=== PATIENT | female | born 1980 | race Caucasian/White ===

== ENCOUNTER 2016-09-05 16:18 | Emergency (ER) | payer SELFPAY ==
[2016-09-05 16:48] VITALS: BP 145/95
[2016-09-05] MEDS ORDERED: methylPREDNISolone Sodium Succinate 40 MG/1 ML SDV IM ONE (17:00)
[2016-09-05] MEDS ORDERED: Albuterol/Ipratropium 3.0-0.5 MG/3 ML Neb Soln NEB ONE (17:00)
[2016-09-05] MEDS ORDERED: Albuterol/Ipratropium 4 GM Inhalation Spray INH PRN (17:02)
--- NOTE | 2016-09-05 17:11 | EDM.PDOC ---
ED HPI GENERAL MEDICAL PROBLEM - General Chief Complaint: Respiratory Problem Stated Complaint: SOB,ASTHMA Time Seen by Provider: 09/05/16 16:56 Source of Information: Reports: Patient, RN Notes Reviewed History Limitations: Reports: No Limitations - History of Present Illness INITIAL COMMENTS - FREE TEXT/NARRATIVE: 35-year-old female presents emergency department day complaint of shortness of breath, she has a known history of asthma however she does not have insurance and has had difficulty following up with a physician cannot afford medications therefore she has not used anything for several months prescribed she ends up borrowing peoples medications particularly inhalers to get by over the last couple days she's been more and more short of breath denies any fevers or chest pain no or GI symptomatologies - Related Data Allergies Allergy/AdvReac Type Severity Reaction Status Date / Time codeine Allergy Vomiting Verified 09/05/16 16:34 meperidine [From Demerol] Allergy Vomiting Verified 09/05/16 16:34 morphine Allergy Vomiting Verified 09/05/16 16:34 prochlorperazine Allergy Seizure Verified 09/05/16 16:34 [From Compazine] Home Meds: Home Meds NK [No Known Home Meds] 09/05/16 [History] Past Medical History Cardiovascular History: Reports: Hypertension, Other (See Below) Other Cardiovascular History: bradycardia- not diagnosed, left hospital AMA Respiratory History: Reports: Asthma, Pneumonia, Recurrent Genitourinary History: Reports: Other (See Below) Other Genitourinary History: post streptococcal glomerilonephritis [employer] History: Reports: Musculoskeletal History: Reports: Fracture Neurological History: Reports: Seizure Other Neuro History: when given compazine. - Past Surgical History HEENT Surgical History: Reports: Other (See Below) Other HEENT Surgeries/Procedures: ear tubes Social & Family History - Tobacco Use Smoking Status *Q: Current Every Day Smoker Years of Tobacco use: 9 Packs/Tins Daily: 0.5 Used Tobacco, but Quit: No - Caffeine Use Caffeine Use: Reports: None - Recreational Drug Use Recreational Drug Use: No ED ROS GENERAL - Review of Systems Review Of Systems: See Below Constitutional: Reports: No Symptoms HEENT: Reports: No Symptoms Respiratory: Reports: Shortness of Breath, Wheezing, Cough Cardiovascular: Reports: No Symptoms GI/Abdominal: Reports: No Symptoms : Reports: No Symptoms ED EXAM, GENERAL - Physical Exam Exam: See Below Exam Limited By: No Limitations General Appearance: Alert, WD/WN, No Apparent Distress Respiratory/Chest: No Respiratory Distress, No Accessory Muscle Use, Chest Non- Tender, Wheezing Cardiovascular: Regular Rate, Rhythm, No Murmur Course - Vital Signs Last Recorded V/S: Last Vital Signs Temp 98.4 F 09/05/16 16:46 Pulse 107 H 09/05/16 16:46 Resp 16 09/05/16 16:46 BP 145/95 H 09/05/16 16:46 Pulse Ox 97 09/05/16 16:46 - Orders/Labs/Meds Orders: Active Orders 24 hr Category Date Time Status RT Aerosol Therapy [RC] ASDIRECTED Care 09/05/16 17:00 Inactive RT Post Treatment Assessment [RC] Click to Edit Care 09/05/16 17:03 Ordered Albuterol/Ipratropium [Combivent Respimat] Med 09/05/16 17:02 Ordered 2 gm INH Q4H PRN Medication Orders Albuterol/Ipratropium (Combivent Respimat) 2 gm INH Q4H PRN PRN Reason: Dyspnea Meds: Medications Generic Name Dose Route Start Last Admin Trade Name Freq PRN Reason Stop Dose Admin Albuterol/Ipratropium 2 gm 09/05/16 17:02 Combivent Respimat INH Q4H PRN Dyspnea Discontinued Medications Generic Name Dose Route Start Last Admin Trade Name Freq PRN Reason Stop Dose Admin Albuterol/Ipratropium 3 ml 09/05/16 17:00 Duoneb 3.0-0.5 Mg/3 Ml NEB 09/05/16 17:01 ONETIME ONE Methylprednisolone Sodium Succinate 60 mg 09/05/16 17:00 Solu-Medrol IM 09/05/16 17:01 ONETIME ONE Departure - Departure Time of Disposition: 17:08 Disposition: Home, Self-Care 01 Condition: Fair Clinical Impression: Asthma exacerbation - Discharge Information Forms: ED Department Discharge Additional Instructions: take full course of steroids, use albuterol as needed for shortness of breath, please establish with a primary care as soon as possible - My Orders Last 24 Hours: My Active Orders 09/05/16 17:00 RT Aerosol Therapy [RC] ASDIRECTED 09/05/16 17:02 Albuterol/Ipratropium [Combivent Respimat] 2 gm INH Q4H PRN 09/05/16 17:03 RT Post Treatment Assessment [RC] Click to Edit - Assessment/Plan Last 24 Hours: My Active Orders 09/05/16 17:00 RT Aerosol Therapy [RC] ASDIRECTED 09/05/16 17:02 Albuterol/Ipratropium [Combivent Respimat] 2 gm INH Q4H PRN 09/05/16 17:03 RT Post Treatment Assessment [RC] Click to Edit Plan: Assessment Acuity = acute on chronic Site and laterality = asthma exacerbation mild intermittent Etiology = unclear etiology Manifestations = wheezing, dyspnea Location of injury = home Lab values = none Plan she had good relief with the nebulizer treatment provided in the ED as well as 1 dose Solu-Medrol 60 mg, discharge home with prednisone 20 mg once a day for 5 days as well as an albuterol inhaler with ipratropium, please establish with primary care for follow-up Patient was in agreement with the plan all questions were answered, they were instructed to return to the emergency department or call for worsening symptoms. This note was dictated using [employer] voice recognition software please call with any questions.
[2016-09-05] MEDS ORDERED: methylPREDNISolone Sodium Succinate 40 MG/1 ML SDV ONE (17:18)
== END 2016-09-05 18:06 | disposition home or self-care (01) ==
LOC: JP.ED 16:18
DX: J45.901 Unspecified asthma with (acute) exacerbation (principal); I10 Essential (primary) hypertension; F17.210 Nicotine dependence, cigarettes, uncomplicated; Z88.5 Allergy status to narcotic agent; Z88.8 Allergy status to other drugs, medicaments and biological substances
CPT/HCPCS: 96372; 99284; A9270; J2920; 99283